=== PATIENT | male | born 1940 | race Caucasian/White ===

== ENCOUNTER 2020-08-10 08:53 | Emergency (ER) | payer MEDICARE ==
[~2020-08-10 08:53] MED LIST: AUGMENTIN 875-1 EACH PO
[2020-08-10 09:37] LABS: HEMOGLOBIN 8.5 gm/dl (14.0-17.5); RED BLOOD COUNT 2.11 M/UL (4.20-5.50); WHITE BLOOD COUNT 10.4 K/UL (4.5-11.0)
[2020-08-10 10:17] LABS: BUN/CREATININE RATIO 21 (0-10)
[2020-08-10] MEDS ORDERED: ZOFRAN4 MG PO (13:43)
[2020-08-10] MEDS ORDERED: OMNICEF 300 MG300 MG PO (13:45)
[2020-08-10] MEDS ORDERED: PROTONIX40 MG PO (14:04)
== END 2020-08-10 14:40 | disposition home or self-care (01) ==
LOC: ER1 08:53
PROVIDERS: Physician Assistant
DX: J18.9 Pneumonia, unspecified organism (principal); D64.9 Anemia, unspecified; K80.20 Calculus of gallbladder without cholecystitis without obstruction; I25.2 Old myocardial infarction; I10 Essential (primary) hypertension; E78.5 Hyperlipidemia, unspecified; J44.9 Chronic obstructive pulmonary disease, unspecified; I25.10 Atherosclerotic heart disease of native coronary artery without angina pectoris
CPT/HCPCS: 71045; 80053; 82272; 82550; 82553; 83605; 83690; 83874; 83880; 84484; 85025; 85610; 85730; 93005; 96374; 99285; J0696; Q9967

== ENCOUNTER 2020-11-27 11:13 | Emergency (ER) | payer MEDICARE ==
[~2020-11-27 11:13] MED LIST changes: +OMNICEF 300 MG300 MG PO; +PROTONIX40 MG PO; +ZOFRAN4 MG PO
[2020-11-27 13:24] LABS: RED BLOOD COUNT 1.58 M/UL (4.20-5.50)
[2020-11-27 13:28] LABS: HEMOGLOBIN 6.2 gm/dl (14.0-17.5)
[2020-11-27 13:31] LABS: BUN/CREATININE RATIO 21 (0-10)
[2020-11-28 03:15] LABS: RED BLOOD COUNT 1.46 M/UL (4.20-5.50); WHITE BLOOD COUNT 17.1 K/UL (4.5-11.0)
[2020-11-28 03:42] LABS: HEMOGLOBIN 5.8 gm/dl (14.0-17.5)
[2020-11-28 03:48] LABS: BUN/CREATININE RATIO 22 (0-10)
[2020-11-28] MEDS ORDERED: LOPRESSOR 25 MG25 MG PO (09:29)
[2020-11-28] MEDS ORDERED: AMLODIPINE BESYL5 MG PO (09:29)
[2020-11-28] MEDS ORDERED: FAMOTIDINE20 MG PO (09:31)
[2020-11-28] MEDS ORDERED: SIMVASTATIN20 MG PO (09:31)
[2020-11-28] MEDS ORDERED: CENTRUM SILVER1 EAC1 PO (14:49)
[2020-11-28] MEDS ORDERED: ASPIRIN EC325 MG PO (14:49)
[2020-11-28] MEDS ORDERED: PULMICORT0.5 MG/21 INH (14:49)
[2020-11-28] MEDS ORDERED: VITAMIN E400 UNI1 PO (14:50)
[2020-11-29 09:13] LABS: HBSAG SCREEN Negative (Negative); HEP A AB, IGM Negative (Negative); HEP B CORE AB, IGM Negative (Negative); HEP C VIRUS AB <0.1 (0.0-0.9)
== END 2020-11-28 19:15 | disposition left against medical advice (07) ==
LOC: ER1 11:13 → CDU 20:23 → ER1 20:23
PROVIDERS: Internal Medicine; Physician Assistant; Registered Nurse
DX: U07.1 COVID-19 (principal); D64.9 Anemia, unspecified; I10 Essential (primary) hypertension; E78.5 Hyperlipidemia, unspecified
CPT/HCPCS: 36430; 71045; 80048; 80053; 80074; 81001; 82550; 82553; 82728; 83010; 83615; 83874; 83921; 84439; 84443; 84484; 85025; 85045; 85610; 85730; 86140; 86850; 86870; 86880; 86900; 86901; 86905; 93005; 99285; G0378; J1650; J7050; U0002

== ENCOUNTER 2021-10-13 12:35 | Inpatient (IN) | payer MEDICARE ==
[~2021-10-13] VITALS: Ht 167.6 cm; Wt 75.8 kg
[~2021-10-13 12:35] MED LIST changes: +AMLODIPINE BESYL5 MG PO; +ASPIRIN EC81 MG PO; +CENTRUM SILVER1 EAC1 PO; +FAMOTIDINE20 MG PO; +LOPRESSOR 25 MG25 MG PO; +PULMICORT0.5 MG/21 INH; +SIMVASTATIN20 MG PO; +VITAMIN E400 UNI1 PO
[2021-10-13 14:33] LABS: RED BLOOD COUNT 1.66 M/UL (4.20-5.50); WHITE BLOOD COUNT 8.8 K/UL (4.5-11.0)
[2021-10-13 14:50] LABS: HEMOGLOBIN 6.8 gm/dl (14.0-17.5)
[2021-10-13 14:57] LABS: BUN/CREATININE RATIO 25 (0-10)
[2021-10-13] MEDS ORDERED: PEPCID20 MG PO (19:34)
[2021-10-14 06:57] LABS: HEMOGLOBIN 7.3 gm/dl (14.0-17.5); RED BLOOD COUNT 1.69 M/UL (4.20-5.50); WHITE BLOOD COUNT 7.5 K/UL (4.5-11.0)
[2021-10-14 07:09] LABS: BUN/CREATININE RATIO 21 (0-10)
[2021-10-15 06:42] LABS: RED BLOOD COUNT 1.63 M/UL (4.20-5.50); WHITE BLOOD COUNT 8.2 K/UL (4.5-11.0)
[2021-10-15 06:58] LABS: HEMOGLOBIN 6.8 gm/dl (14.0-17.5)
[2021-10-15 07:01] LABS: BUN/CREATININE RATIO 23 (0-10)
[2021-10-15 10:09] LABS: RED BLOOD COUNT 1.92 M/UL (4.20-5.50)
--- NOTE | 2021-10-16 01:48 | NUR ---
CONTACTED DR. GÓMEZ DUE TO PATIENT BEING HYPOTENSIVE WHEN BEING AWAKEN FOR VITALS, B/P WAS 91/40. DR. GÓMEZ INSTRUCTED NO NEW ORDERS AT THIS TIME DUE TO PATIENT TAKING B/P MEDICATION WITH PM MED PASS. BLOOD PRESSURE WAS REASSESSED AT 0152 AND IT WAS 99/49, PATIENT INDICATED THIS WAS SOMETIMES NORMAL FOR HIM. WILL CONTIUE TO MONITOR PATIENT.
[2021-10-16 04:31] LABS: WHITE BLOOD COUNT 7.8 K/UL (4.5-11.0)
[2021-10-16 04:33] LABS: RED BLOOD COUNT 1.52 M/UL (4.20-5.50)
[2021-10-16 04:36] LABS: HEMOGLOBIN 6.7 gm/dl (14.0-17.5)
--- NOTE | 2021-10-16 04:50 | NUR ---
LAB REPORTED A CRITICAL LAB VALUE OF A HGB OF 6.7, CONTACTED DR. GÓMEZ WHO ORDERED 1 UNIT OF BLOOD. I ASK DR. GÓMEZ IF HE WANTED THE 1 UNIT OF BLOOD GIVEN EVEN THOUGH THERE IS AN ORDER TO HOLD THE TRANSFUSION UNTIL HE IS SEEN BY HEMOTOLOGY IN THE MORNING, HE REPLIED "YES, GIVE HIM 1 UNIT"
[2021-10-16 08:14] LABS: HAPTOGLOBIN <10 mg/dL (38-329)
[2021-10-16 08:14] LABS: BUN/CREATININE RATIO 22 (0-10)
[2021-10-17 04:21] LABS: HEMOGLOBIN 7.7 gm/dl (14.0-17.5)
[2021-10-17 04:37] LABS: RED BLOOD COUNT 1.91 M/UL (4.20-5.50); WHITE BLOOD COUNT 10.1 K/UL (4.5-11.0)
[2021-10-17 08:36] LABS: BUN/CREATININE RATIO 23 (0-10)
[2021-10-17] MEDS ORDERED: PROTONIX40 MG PO (13:50)
[2021-10-17] MEDS ORDERED: FOLIC ACID 1 MG1 MG PO (13:50)
[2021-10-17] MEDS ORDERED: PREDNISONE 20 M20 MG PO (13:50)
[2021-10-17] MEDS ORDERED: VITAMIN B-121000 MC3 SL (13:50)
== END 2021-10-17 17:23 | disposition home or self-care (01) | DRG 809 ==
LOC: ER1 12:35 → MED SURG 4 17:01 → CDU 17:01 → MED SURG 4 19:16
PROVIDERS: Internal Medicine; Physician Assistant; Registered Nurse; ADMIT Internal Medicine
PROC: 30233N1 Transfusion of Nonautologous Red Blood Cells into Peripheral Vein, Percutaneous Approach (ICD-10-PCS; principal; 2021-10-14)
DX: D59.10 Autoimmune hemolytic anemia, unspecified (principal); C91.10 Chronic lymphocytic leukemia of B-cell type not having achieved remission; J96.10 Chronic respiratory failure, unspecified whether with hypoxia or hypercapnia; D84.9 Immunodeficiency, unspecified; Z20.822 Contact with and (suspected) exposure to COVID-19; I25.10 Atherosclerotic heart disease of native coronary artery without angina pectoris; E80.6 Other disorders of bilirubin metabolism; D53.9 Nutritional anemia, unspecified; E78.5 Hyperlipidemia, unspecified; H91.93 Unspecified hearing loss, bilateral; K46.9 Unspecified abdominal hernia without obstruction or gangrene; D75.89 Other specified diseases of blood and blood-forming organs; I10 Essential (primary) hypertension; Z95.5 Presence of coronary angioplasty implant and graft; Z79.01 Long term (current) use of anticoagulants; Z79.82 Long term (current) use of aspirin; Z91.14 Patient's other noncompliance with medication regimen; I25.2 Old myocardial infarction; Z87.891 Personal history of nicotine dependence
CPT/HCPCS: 36415; 80048; 80053; 82150; 82272; 82550; 82553; 82607; 82746; 83010; 83540; 83550; 83615; 83690; 83735; 83921; 84484; 85007; 85025; 85027; 85045; 86850; 86860; 86870; 86880; 86900; 86901; 86902; 86920; 86922; 93005; 97166; 99285; C9113; P9016